=== PATIENT | male | born 1975 | race Caucasian/White ===

== ENCOUNTER → 2023-08-04 12:24 | Outpatient (REF) | payer SELFPAY | LOC: HWRAD 12:24 | PROVIDERS: ATTENDING PHYSICIAN Nurse Practitioner; FAMILY PHYSICIAN Internal Medicine | DX: E78.2 Mixed hyperlipidemia (principal) | CPT/HCPCS: 75571 ==

== ENCOUNTER → 2023-09-07 14:38 | Outpatient (REF) | payer OTHER, SELFPAY | LOC: DHCBS HW 14:38 | PROVIDERS: ATTENDING PHYSICIAN Nurse Practitioner; FAMILY PHYSICIAN Internal Medicine | DX: R00.2 Palpitations (principal); R60.0 Localized edema | CPT/HCPCS: 93306 ==

== ENCOUNTER 2023-12-02 12:57 | Emergency (ER) | payer OTHER, SELFPAY ==
[2023-12-02 12:58] VITALS: BP 129/89
--- NOTE | 2023-12-02 14:55 | ED.GENMED ---
History of Present Illness
General
Chief Complaint: Musculo-Skeletal Complaint
Source: patient and spouse
Exam Limitations: none
Time Seen by Provider: 12/02/23 13:18
Nursing documentation reviewed up to this point in time: agreed with
History of Present Illness
History of Present Illness:
Patient is a 48-year-old male who presents to the emergency department with pain, swelling and bruising of his left lower leg after being struck with a softball last night and it took a bad hop as he was feeling it. Patient has pain with
weightbearing. Patient is on Eliquis for atrial fibrillation. Patient denies any paresthesias, cold feeling or pallor of his left foot.
Past History
Past History
ED Past Medical History: Arrthythmia (Atrial fib); Negative HTN, Hypercholesterolemia or NIDDM
ED Past Surgical History: None
Social History
Tobacco: Former smoker
Alcohol: None
Personal:
Living: with family
Review of Systems
Review of Systems
All Other Systems: Not applicable
Phy Exam
Physical Exam
Physical Exam:
Physical Exam
General: No apparent distress, alert and appropriate, well nourished, well hydrated
HENT: Normocephalic, supple
Neuro: Alert and oriented x 3, CN II - XII intact, no motor focality, no cerebellar dysfunction
Skin: no rash. Ecchymosis on the medial anterior surface of the left lower leg. Neurovascularly intact with good pulses and good sensation
Psychiatric: well kept. interactive and cooperative
Extremities: No cyanosis. Tenderness along the area of the ecchymosis and hematoma. Good and equal peripheral pulses.
Course
Orders/Labs/Results
Orders:
Orders
12/02/23 13:04
CR Leg Tibia/fibula Left 2 Vw Urgent
Comment:
Reason For Exam: injury, swelling
US Periph Venous LOWER Ext LT Urgent
Comment:
Reason For Exam: injury, swelling
Vital Signs
Initial and Last Documented VS:
Initial Vital Signs
Temp Pulse Resp BP Pulse Ox
98.0 F 98 18 129/89 98
12/02/23 12:58 12/02/23 12:58 12/02/23 12:58 12/02/23 12:58 12/02/23 12:58
Last Documented Vital Signs
Temp Pulse Resp BP Pulse Ox
98.0 F 98 18 129/89 98
12/02/23 12:58 12/02/23 12:58 12/02/23 12:58 12/02/23 12:58 12/02/23 12:58
*Radiology
Radiology exam reviewed: radiology read reviewed (Hematoma no DVT)
*Pulse Oximetry
Patient hypoxic: no
*EKG
Interpreted by ED Provider?: NA
*Director Of Manufacturing Operations Interpretation
Rate: Director Of Manufacturing Operations- N/A
*Critical Care Note
Total Time (30-74mins, 75-104mins- exclusive of procedures): Not Applicable
Update Note
Update Note:
And 3 to 4 days the patient is heading to [place] for his son's hockey tournament and will be gone a few days. They are concerned that they are on the road and he developed an infection that they would have limited access to getting antibiotics.
Patient will have a prescription sent in in case he develops symptoms.
ED Attending Note
-
Portions of this chart may have been created with voice recognition software.� Occasional wrong word or��sound alike� substitutions may have occurred due to the inherent limitations of voice recognition software.
Discharge Plan
Departure
Patient Disposition: Home (Routine Discharge)
Date of Disposition: 12/02/23
Time of Disposition: 14:59
Patient with high blood pressure during this ER visit?: No
Covid-19: Not Applicable
Discharge Problem:
Hematoma of left lower leg
Instructions: How to Use Crutches, Contusion (DC), Using Cold for Pain, RICE Therapy
Prescriptions:
New
cephalexin 500 mg capsule
500 mg PO TID Qty: 30 0RF
No Action
multivitamin 1 EACH tablet
1 ea PO DAILY
alprazolam 0.5 MG tablet
0.25 mg PO HSPRN PRN (Reason: sleep)
glucosamine HCl 750 MG tablet
1,500 mg PO DAILY
Eliquis 5 MG tablet
5 mg PO BID
diltiazem HCl 240 mg Capsule,Extended Release 24 Hr
240 mg PO DAILY
fexofenadine 180 mg Tablet
180 mg PO DAILY
Referrals:
Brandon Regan MD [Family Provider] - Follow up in 2-3 days
Activity Restrictions/Additional Instructions:
Continue present medications and therapy.
Interventions
Interventions:
*Risk Screen - Suicide Last Done: 12/02/23 12:58
*General Assessment Last Done: 12/02/23 12:58
*Neglect/Abuse Screening Last Done: 12/02/23 12:58
*ED COVID-19 Vaccine History Last Done: 12/02/23 12:58
ED-Musculoskeletal Assessment Last Done: 12/02/23 13:35
Discharge Date and Time
Print Language: MALTESE
== END 2023-12-02 15:42 | disposition home or self-care (01) ==
LOC: EMR 12:57
PROVIDERS: EMERGENCY PHYSICIAN Emergency Medicine; FAMILY PHYSICIAN Internal Medicine
DX: S80.12XA Contusion of left lower leg, initial encounter (principal); W21.07XA Struck by softball, initial encounter; R22.42 Localized swelling, mass and lump, left lower limb; I48.91 Unspecified atrial fibrillation; Z79.01 Long term (current) use of anticoagulants
CPT/HCPCS: 99284; 73590; 93971

== ENCOUNTER → 2025-03-17 15:46 | Outpatient (REF) | payer BC, SELFPAY | LOC: HWRCS 15:46 | PROVIDERS: ATTENDING PHYSICIAN Internal Medicine Cardiovascular Disease; FAMILY PHYSICIAN Internal Medicine | DX: I48.0 Paroxysmal atrial fibrillation (principal) | CPT/HCPCS: 93306 ==